=== PATIENT | female | born 1970 | race Caucasian/White ===

== ENCOUNTER 2021-12-13 17:33 | Emergency (ER) | payer MEDICAID ==
[~2021-12-13] VITALS: Ht 157.5 cm; Wt 74.8 kg
[2021-12-13 17:33] VITALS: BP_SYST 136
[2021-12-13 18:31] VITALS: BP_SYST 136
== END 2021-12-13 18:31 | disposition home or self-care (01) ==
LOC: SED 17:33
DX: M79.641 Pain in right hand (principal)
CPT/HCPCS: 99283